=== PATIENT | female | born 1950 | race African-American/Black ===

== ENCOUNTER 2017-03-07 20:23 | Inpatient (IN) | payer OTHER ==
[~2017-03-07] VITALS: Ht 160 cm; Wt 79.9 kg
[2017-03-07] VITALS (10 sets, daily range): BP systolic 136–167; BP diastolic 66–92
[~2017-03-07 20:23] MED LIST: AMLODIPINE BESYL5 MG PO; CEPHALEXIN500 M1 PO; CIPRODEX 0.3%-7.5 ML OT; CIPROFLOXACIN500 MG PO; HYDROCODONE BIT1 T11 PO; NAPROSYN500 MG PO; NORVASC10 MG PO; PREDNICOT20 MG PO; PROAIR HFA8.5 GM INH; TESSALON PERLE100 M1 PO
[2017-03-07 20:51] LABS: BASO % 0.3 % (0.0-1.0); EOS # 0.1 10*3/uL (0.0-0.4); EOS % 1.7 % (1.0-4.0); HEMATOCRIT 36.4 % (37.0-47.0); HEMOGLOBIN 12.3 g/dl (12.0-16.0); LYMPH # 2.7 10*3/uL (1.3-4.4); LYMPH % 40.4 % (27.0-41.0); MEAN CELL VOLUME 89.9 fl (81.0-99.0); MEAN CORPUSCULAR HGB 30.4 pg (27.0-31.0); MEAN CORPUSCULAR HGB CONC 33.8 g/dl (33.0-37.0); MEAN PLATELET VOLUME 9.2 fl (9.6-12.3); MONO # 0.5 10*3/uL (0.1-1.0); MONO % 7.3 % (3.0-9.0); NEUT # 3.3 10*3/uL (2.3-7.9); NEUT % 50.1 % (47.0-73.0); PLATELET COUNT AUTOMATED 235 10*3/uL (130-400); RED BLOOD COUNT 4.05 10*6/uL (4.10-5.10); RED CELL DISTRI WIDTH 12.5 % (0-14.5); WHITE BLOOD COUNT 6.6 10*3/uL (4.8-10.8)
[2017-03-07 21:08] LABS: ALKALINE PHOSPHATASE 122 U/L (45-117); BILIRUBIN, TOTAL 0.5 mg/dl (0.2-1.0); BUN 11 mg/dl (7-24); CARBON DIOXIDE 26 mmol/L (21-32); CHLORIDE 107 mmol/L (98-107); EST GLOM FILT AFRICAN AMERICAN > 60 ml/min; GLUCOSE 86 mg/dL (65-99); MAGNESIUM 2.5 mg/dL (1.5-2.1); SGOT/AST 15 IU/L (3-35); SGPT/ALT 14 U/L (12-78); SODIUM 144 mmol/L (136-145)
[2017-03-07 21:10] LABS: TROPONIN I < 0.015 ng/ml (<0.045)
[2017-03-07 21:36] LABS: PROTHROMBIN TIME 10.4 SECONDS (9.0-12.4)
[2017-03-08] VITALS: BP 143/72
[2017-03-08 00:15] VITALS: BP 143/72
[2017-03-08 00:20] VITALS: BP 143/72
[2017-03-08 00:46] LABS: CKMB 0.9 ng/ml (0.5-3.6)
[2017-03-08 08:00] VITALS: BP 153/80; BP 156/80
[2017-03-08] MEDS ORDERED: AMLODIPINE BESY1 TAB PO (08:14)
[2017-03-08 12:00] VITALS: BP 130/76; BP 145/65
== END 2017-03-08 12:27 | disposition home or self-care (01) | DRG 313 ==
LOC: ED 20:23 → EDHOLD 23:00 → 4E 23:19
PROVIDERS: Emergency Medicine Emergency Medical Services; Internal Medicine
DX: R07.89 Other chest pain (principal); E83.41 Hypermagnesemia; I10 Essential (primary) hypertension; R00.1 Bradycardia, unspecified; T14.8 Other injury of unspecified body region; X58.XXXA Exposure to other specified factors, initial encounter; Y93.89 Activity, other specified; Y92.89 Other specified places as the place of occurrence of the external cause; Z82.3 Family history of stroke; Z84.1 Family history of disorders of kidney and ureter; Z83.3 Family history of diabetes mellitus; Z91.14 Patient's other noncompliance with medication regimen; Z82.49 Family history of ischemic heart disease and other diseases of the circulatory system; Z88.2 Allergy status to sulfonamides; Z79.899 Other long term (current) drug therapy; Y99.8 Other external cause status

== ENCOUNTER 2017-08-16 19:23 | Emergency (ER) | payer BC ==
[~2017-08-16] VITALS: Ht 160 cm; Wt 77.1 kg
[~2017-08-16 19:23] MED LIST changes: +AMLODIPINE BESY1 TAB PO
[2017-08-16] MEDS ORDERED: PREDNISONE20 M1 PO (20:33)
[2017-08-16] MEDS ORDERED: AMOXICILLIN500 M2 PO (20:33)
== END 2017-08-16 20:56 | disposition home or self-care (01) ==
LOC: ED 19:23
DX: J20.9 Acute bronchitis, unspecified (principal); I10 Essential (primary) hypertension; Z79.899 Other long term (current) drug therapy; Z88.2 Allergy status to sulfonamides

== ENCOUNTER 2017-12-14 15:28 | Emergency (ER) | payer BC ==
[~2017-12-14] VITALS: Ht 160 cm; Wt 78.5 kg
[~2017-12-14 15:28] MED LIST changes: +AMOXICILLIN500 M2 PO; +PREDNISONE20 M1 PO
[2017-12-14 17:18] LABS: BASO % 0.1 % (0.0-1.0); EOS # 0.1 10*3/uL (0.0-0.4); EOS % 1.1 % (1.0-4.0); HEMATOCRIT 38.4 % (37.0-47.0); HEMOGLOBIN 12.7 g/dl (12.0-16.0); LYMPH % 27.3 % (27.0-41.0); MEAN CELL VOLUME 91.6 fl (81.0-99.0); MEAN CORPUSCULAR HGB 30.3 pg (27.0-31.0); MEAN CORPUSCULAR HGB CONC 33.1 g/dl (33.0-37.0); MEAN PLATELET VOLUME 9.1 fl (9.6-12.3); MONO # 0.4 10*3/uL (0.1-1.0); NEUT # 4.8 10*3/uL (2.3-7.9); NEUT % 65.2 % (47.0-73.0); PLATELET COUNT AUTOMATED 252 10*3/uL (130-400); RED BLOOD COUNT 4.19 10*6/uL (4.10-5.10); RED CELL DISTRI WIDTH 12.4 % (0-14.5); WHITE BLOOD COUNT 7.3 10*3/uL (4.8-10.8)
[2017-12-14 17:36] LABS: ALBUMIN 4.1 gm/dl (3.1-4.5); ALKALINE PHOSPHATASE 123 U/L (45-117); BUN 10 mg/dl (7-24); CHLORIDE 108 mmol/L (98-107); CREATININE 0.87 mg/dL (0.55-1.02); SGOT/AST 13 IU/L (3-35); SGPT/ALT 15 U/L (12-78); SODIUM 141 mmol/L (136-145); TOTAL PROTEIN 7.9 gm/dL (6.4-8.2)
[2017-12-14 17:39] LABS: TROPONIN I < 0.015 ng/ml (<0.045)
== END 2017-12-14 18:57 | disposition left against medical advice (07) ==
LOC: ED 15:28
PROVIDERS: Nurse Practitioner
DX: R00.1 Bradycardia, unspecified (principal); Z79.899 Other long term (current) drug therapy; Z88.2 Allergy status to sulfonamides

== ENCOUNTER 2018-02-26 18:24 | Emergency (ER) | payer OTHER, MEDICAID ==
[~2018-02-26] VITALS: Ht 160 cm; Wt 77.1 kg
[2018-02-26] MEDS ORDERED: MEDROL DOSEPAK4 MG PO (18:34)
[2018-02-26] MEDS ORDERED: LIDEX 0.05% CRE15 GM T (18:34)
== END 2018-02-26 18:39 | disposition home or self-care (01) ==
LOC: ED 18:24
DX: L25.9 Unspecified contact dermatitis, unspecified cause (principal); Z88.2 Allergy status to sulfonamides; Z79.899 Other long term (current) drug therapy

== ENCOUNTER 2018-03-11 11:37 | Emergency (ER) | payer OTHER, MEDICAID ==
[~2018-03-11] VITALS: Ht 160 cm; Wt 77.1 kg
[~2018-03-11 11:37] MED LIST changes: +LIDEX 0.05% CRE15 GM T; +MEDROL DOSEPAK4 MG PO
[2018-03-11] MEDS ORDERED: FLONASE ALLERG9.9 ML NAS (11:53)
[2018-03-11] MEDS ORDERED: AVPAK AZITHROM250 MG PO (11:53)
[2018-03-11] MEDS ORDERED: CLARITIN10 MG PO (11:53)
[2018-03-11] MEDS ORDERED: PREDNISONE10 MG PO (11:53)
== END 2018-03-11 13:07 | disposition home or self-care (01) ==
LOC: ED 11:37
DX: J20.9 Acute bronchitis, unspecified (principal); I10 Essential (primary) hypertension; Z88.2 Allergy status to sulfonamides; Z79.899 Other long term (current) drug therapy

== ENCOUNTER 2019-02-10 00:17 | Emergency (ER) | payer OTHER, MEDICAID ==
[~2019-02-10] VITALS: Ht 167.6 cm; Wt 72.6 kg
--- NOTE | ~2019-02-10 | EKG ---
[place], [place] ELECTROCARDIOGRAM REPORT NAME: KIRK BHANDARI UNIT #: [id number] ROOM: DOCTOR: EPIPHANY DRAFT REPORT BIRTHDATE: [birth year] [facility] Test Date: 2019-02-10 Test Time: 00:54:40 Pat Name: KIRK BHANDARI Department: Room: Gender: F Clinical Nurse Specialist: : [id number] Requested By: STANFORD LAWRENCE Order Number: [id number] Reading MD: Jessica Monique Measurements Intervals [place] Rate: 51 P: 33 WV: 200 QRS: 10 QRSD: 88 T: 12 QT: 406 QTc: 374 Interpretive Statements Sinus rhythm Electronically Signed On 02-12-2019 12:43:22 PDT by Jessica Monique CM:EKGRPT:ELECTROCARDIOGRAM REPORT [id number] STANFORD ARTHUR DRAFT REPORT STANFORD LAWRENCE DO
[~2019-02-10 00:17] MED LIST changes: +AVPAK AZITHROM250 MG PO; +CLARITIN10 MG PO; +FLONASE ALLERG9.9 ML NAS; +PREDNISONE10 MG PO
[2019-02-10 01:07] LABS: BASO % 0.3 % (0.0-1.0); EOS # 0.2 10*3/uL (0.0-0.4); EOS % 2.8 % (1.0-4.0); HEMATOCRIT 35.6 % (37.0-47.0); HEMOGLOBIN 11.6 g/dl (12.0-16.0); LYMPH # 2.2 10*3/uL (1.3-4.4); LYMPH % 36.4 % (27.0-41.0); MEAN CELL VOLUME 93.4 fl (81.0-99.0); MEAN CORPUSCULAR HGB 30.4 pg (27.0-31.0); MEAN CORPUSCULAR HGB CONC 32.6 g/dl (33.0-37.0); MEAN PLATELET VOLUME 9.4 fl (9.6-12.3); MONO # 0.4 10*3/uL (0.1-1.0); NEUT # 3.3 10*3/uL (2.3-7.9); NEUT % 53.3 % (47.0-73.0); PLATELET COUNT AUTOMATED 211 10*3/uL (130-400); RED BLOOD COUNT 3.81 10*6/uL (4.10-5.10); RED CELL DISTRI WIDTH 12.6 % (0-14.5); WHITE BLOOD COUNT 6.1 10*3/uL (4.8-10.8)
[2019-02-10 01:26] LABS: ALBUMIN 3.6 gm/dl (3.1-4.5); ALKALINE PHOSPHATASE 122 U/L (45-117); BUN 9 mg/dl (7-24); CHLORIDE 110 mmol/L (98-107); CREATININE 1.04 mg/dL (0.55-1.02); POTASSIUM 3.6 mmol/L (3.5-5.1); SGOT/AST 14 IU/L (3-35); SGPT/ALT 12 U/L (12-78); SODIUM 141 mmol/L (136-145); TOTAL PROTEIN 7.6 gm/dL (6.4-8.2)
[2019-02-10 01:28] LABS: TROPONIN I < 0.015 ng/ml (<0.045)
== END 2019-02-10 02:32 | disposition home or self-care (01) ==
LOC: ED 00:17
PROVIDERS: Emergency Medicine
DX: I10 Essential (primary) hypertension (principal); Z88.2 Allergy status to sulfonamides; Z79.899 Other long term (current) drug therapy

== ENCOUNTER → 2019-10-11 | Outpatient (CLI) | payer OTHER, MEDICAID | END | disposition home or self-care (01) | LOC: CARD 09:30 | DX: R00.1 Bradycardia, unspecified (principal) ==

== ENCOUNTER → 2020-12-27 | Outpatient (CLI) | payer MEDICARE, MEDICAID ==
[~2020-12-27] MED LIST changes: +AMLODIPINE BESY10 MG PO
== END | disposition home or self-care (01) ==
LOC: COVID19 11:06
PROVIDERS: ATTEND Internal Medicine
DX: Z01.812 Encounter for preprocedural laboratory examination (principal); Z20.822 Contact with and (suspected) exposure to COVID-19

== ENCOUNTER → 2021-01-01 | Day surgery (SDC) | payer MEDICARE, MEDICAID ==
[~2021-01-01] VITALS: Ht 160 cm; Wt 71.7 kg
[2021-01-01 08:59] VITALS: BP 125/55
[2021-01-01 10:08] VITALS: BP 155/78
== END | disposition home or self-care (01) ==
LOC: SDC 12-30 14:00
PROVIDERS: ATTEND Ophthalmology
DX: H25.11 Age-related nuclear cataract, right eye (principal); I10 Essential (primary) hypertension; Z88.2 Allergy status to sulfonamides; Z98.890 Other specified postprocedural states; Z79.899 Other long term (current) drug therapy

== ENCOUNTER 2021-09-19 01:51 | Emergency (ER) | payer MEDICARE, MEDICAID ==
[~2021-09-19] VITALS: Ht 160 cm; Wt 70.3 kg
[2021-09-19 02:40] LABS: BASO % 0.5 % (0.0-1.0); EOS # 0.1 10*3/uL (0.0-0.4); EOS % 1.5 % (1.0-4.0); HEMATOCRIT 36.7 % (37.0-47.0); LYMPH # 2.2 10*3/uL (1.3-4.4); LYMPH % 35.6 % (27.0-41.0); MEAN CELL VOLUME 91.1 fl (81.0-99.0); MEAN CORPUSCULAR HGB 30.5 pg (27.0-31.0); MEAN CORPUSCULAR HGB CONC 33.5 g/dl (33.0-37.0); MEAN PLATELET VOLUME 9.1 fl (9.6-12.3); MONO # 0.5 10*3/uL (0.1-1.0); MONO % 7.4 % (3.0-9.0); NEUT # 3.3 10*3/uL (2.3-7.9); NEUT % 54.8 % (47.0-73.0); PLATELET COUNT AUTOMATED 271 10*3/uL (130-400); RED BLOOD COUNT 4.03 10*6/uL (4.10-5.10); RED CELL DISTRI WIDTH 12.1 % (0-14.5); WHITE BLOOD COUNT 6.1 10*3/uL (4.8-10.8)
[2021-09-19 02:41] LABS: CPK 47 U/L (26-192); FREE T4 0.97 ng/dl (0.76-1.46)
[2021-09-19 02:46] LABS: THYROID STIM HORMONE (HS) 6.78 uIU/ml (0.358-4.75)
[2021-09-19 02:47] LABS: BILIRUBIN Negative (Negative); BLOOD Trace-Lysed (Negative); CLARITY Clear (Clear); COLOR Yellow (Yellow); GLUCOSE Negative (Negative); KETONE Negative (Negative); LEUKO ESTERASE 2+ (Negative); NITRITE Negative (Negative); PH 5.5 (4.5-8.0); SPECIFIC GRAVITY <= 1.005 (1.001-1.030); UROBILINOGEN 0.2 E.U./dl (0.0-1.0)
[2021-09-19 02:50] LABS: ALBUMIN 3.8 gm/dl (3.1-4.5); ALKALINE PHOSPHATASE 131 U/L (45-117); BUN 11 mg/dl (7-24); CHLORIDE 112 mmol/L (98-107); CREATININE 0.98 mg/dL (0.55-1.02); POTASSIUM 3.4 mmol/L (3.5-5.1); SGOT/AST 12 IU/L (3-35); SGPT/ALT 14 U/L (12-78); SODIUM 143 mmol/L (136-145); TOTAL PROTEIN 7.6 gm/dL (6.4-8.2)
[2021-09-19 03:08] LABS: RBC 0-2 rbc/hpf (0-2)
[2021-09-19] MEDS ORDERED: MACROBID100 M1 PO (03:20)
== END 2021-09-19 03:45 | disposition home or self-care (01) ==
LOC: ED 01:51
PROVIDERS: Emergency Medicine
DX: N39.0 Urinary tract infection, site not specified (principal); R00.2 Palpitations; I10 Essential (primary) hypertension; Z88.2 Allergy status to sulfonamides; Z79.899 Other long term (current) drug therapy

== ENCOUNTER 2023-11-24 13:08 | Emergency (ER) | payer MEDICARE, MEDICAID ==
[~2023-11-24] VITALS: Ht 160 cm; Wt 70.3 kg
[~2023-11-24 13:08] MED LIST changes: +MACROBID100 M1 PO
[2023-11-24 14:43] LABS: BASO % 0.7 % (0.0-1.0); EOS # 0.1 10*3/uL (0.0-0.4); HEMATOCRIT 38.7 % (37.0-47.0); LYMPH # 1.8 10*3/uL (1.3-4.4); LYMPH % 30.5 % (27.0-41.0); MEAN CELL VOLUME 92.4 fl (81.0-99.0); MEAN CORPUSCULAR HGB 30.1 pg (27.0-31.0); MEAN CORPUSCULAR HGB CONC 32.6 g/dl (33.0-37.0); MONO # 0.5 10*3/uL (0.1-1.0); MONO % 8.1 % (3.0-9.0); NEUT # 3.5 10*3/uL (2.3-7.9); NEUT % 59.5 % (47.0-73.0); PLATELET COUNT AUTOMATED 254 10*3/uL (130-400); RED BLOOD COUNT 4.19 10*6/uL (4.10-5.10); RED CELL DISTRI WIDTH 12.9 % (0-14.5); WHITE BLOOD COUNT 5.8 10*3/uL (4.8-10.8)
[2023-11-24 15:02] LABS: BUN 9 mg/dl (9-23); CHLORIDE 108 mmol/L (98-107); POTASSIUM 3.4 mmol/L (3.4-5.1)
== END 2023-11-24 19:00 | disposition home or self-care (01) ==
LOC: ED 13:08
PROVIDERS: Internal Medicine
DX: R00.1 Bradycardia, unspecified (principal); R06.02 Shortness of breath; Z88.2 Allergy status to sulfonamides; Z79.2 Long term (current) use of antibiotics; Z79.899 Other long term (current) drug therapy; Z98.890 Other specified postprocedural states